=== PATIENT | female | born 1985 | race Caucasian/White ===

== ENCOUNTER 2020-11-22 19:44 | Emergency (ER) | payer OTHER ==
[2020-11-22 19:55] VITALS: BP 134/87; PULSE 100; TEMP 98.7; BMI 26.9
[2020-11-22 21:24] LABS: BASO % 1.2 % (0-2.0); EOS % 0.8 % (0-4.5); HEMATOCRIT 38.1 % (32.4-45.2); HEMOGLOBIN 13.1 GM/dL (10.7-15.3); MCH 29.8 pg (25.7-33.7); MCHC 34.4 g/dl (32.0-36.0); MEAN CELL VOLUME 86.8 fl (80-96); MEAN PLT VOLUME 9.3 fl (7.5-11.1); MONO % 4.8 % (3.8-10.2); NEUT % 67.2 % (42.8-82.8); PLATELET COUNT 334 K/MM3 (134-434); RBC 4.39 M/mm3 (3.60-5.2); WHITE BLOOD COUNT 9.4 K/mm3 (4.0-10.0)
[2020-11-22 21:43] LABS: BLOOD UREA NITROGEN 13.3 mg/dL (7-18); CALCIUM 9.7 mg/dL (8.5-10.1)
[2020-11-22 21:46] LABS: CREATININE 0.7 mg/dL (0.55-1.3)
== END 2020-11-22 22:25 | disposition left against medical advice (07) ==
LOC: JERFT 19:44
DX: R07.0 Pain in throat (principal)
CPT/HCPCS: 36415; 70360-TC-FY; 80048; 85025; 99284-25